=== PATIENT | male | born 1955 | race Caucasian/White ===

== ENCOUNTER → 2018-03-16 | Outpatient (CLI) | payer OTHER ==
[~2018-03-16] MED LIST: CALC200T3 PO; FAMO10TA31 PO; LISI-167 PO
== END | disposition home or self-care (01) ==
LOC: CVU 13:19
PROVIDERS: ATTEND Internal Medicine Cardiovascular Disease
DX: I08.2 Rheumatic disorders of both aortic and tricuspid valves (principal); I10 Essential (primary) hypertension; Z87.891 Personal history of nicotine dependence
CPT/HCPCS: 93306

== ENCOUNTER 2019-07-05 09:53 | Outpatient (CLI) | payer OTHER | END 2019-07-05 23:59 | disposition home or self-care (01) | LOC: CFH 09:53 | PROVIDERS: ATTEND Internal Medicine Cardiovascular Disease | DX: Z13.6 Encounter for screening for cardiovascular disorders (principal); Z82.49 Family history of ischemic heart disease and other diseases of the circulatory system; Z87.891 Personal history of nicotine dependence | CPT/HCPCS: 75571 ==

== ENCOUNTER 2019-08-30 08:19 | Outpatient (CLI) | payer OTHER | END 2019-08-30 23:59 | disposition home or self-care (01) | LOC: CFH 08:19 | PROVIDERS: ATTEND Nurse Practitioner Family | DX: R94.31 Abnormal electrocardiogram [ECG] [EKG] (principal); I42.9 Cardiomyopathy, unspecified | CPT/HCPCS: 78452; 93017; A9502 ==